=== PATIENT | female | born 1960 | race Caucasian/White ===

== ENCOUNTER → 2023-10-18 13:13 | Outpatient (REF) | payer OTHER, SELFPAY | LOC: HWRAD 13:13 | PROVIDERS: ATTENDING PHYSICIAN Family Medicine | DX: S92.901A Unspecified fracture of right foot, initial encounter for closed fracture (principal); S93.401A Sprain of unspecified ligament of right ankle, initial encounter | CPT/HCPCS: 73610; 73630 ==